=== PATIENT | female | born 1995 | race American Indian/Alaskan Native ===

== ENCOUNTER 2017-07-31 06:27 | Emergency (ER) | payer SELFPAY ==
[2017-07-31 07:03] VITALS: BP 121/76
[2017-07-31] MEDS ORDERED: MOTRIN PO ONE (10:07)
[2017-07-31] MEDS ORDERED: MARCAINE 0.25% INFILTRATI ONE (10:07)
[2017-07-31] MEDS ORDERED: NORCO 5/325 PO ONE (10:07)
--- NOTE | 2017-07-31 10:07 | Emergency Department Report ---
Abscess Boil HPI - HPI Chief Complaint: Skin/Abscess/Foreign Body Stated Complaint: ABCESS ON VAGINA Time Seen by Provider: 07/31/17 09:42 Duration: 3 Days Location: Perianal (left vaginal area) Severity: Severe (12/01) History: Yes Pain (left vaginal area), Yes Purulent Drainage (drainage, pus), No Fever (chills), No Numbness, No Foreign Body, No Previous History, No Insect Bite HPI: Patient reports that she has a boil to her left vaginal area 3 days. Pain is none of the 10 and throbbing. Denies having similar episode. Last menstrual period was 07/22/2017. Pain is worse with movement and touch better with resting. She says she has chills but did not take her temperature decisions a fever. Patient has no medical problems. No medication taken. She says she uses pad because it was draining pus. Tetanus vaccines up-to-date. 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 Home Medications: Previous Rx's Medication Instructions Recorded Last Taken Type Acetaminophen/Codeine [Tylenol 1 tab PO Q6H PRN #12 tab 07/31/17 Unknown Rx /Codeine # 3 tab] Ibuprofen [Motrin] 600 mg PO Q8H PRN #12 tablet 07/31/17 Unknown Rx Sulfamethoxazole/Trimethoprim 1 each PO BID 10 Days #20 tablet 07/31/17 Unknown Rx [Bactrim DS TAB] Allergies/Adverse Reactions: Allergies Allergy/AdvReac Type Severity Reaction Status Date / Time No Known Allergies Allergy Unverified 07/31/17 06:56 ED Review of Systems ROS: Stated complaint: ABCESS ON VAGINA Other details as noted in HPI Comment: All other systems reviewed and negative Constitutional: chills. denies: fever Respiratory: denies: cough, shortness of breath, wheezing Cardiovascular: denies: chest pain, palpitations Gastrointestinal: denies: abdominal pain, nausea, vomiting, diarrhea, constipation, hematemesis, melena, hematochezia Genitourinary: discharge (sternal vaginal area), other (boil to left vaginal area). denies: urgency, dysuria, frequency, hematuria, abnormal menses Musculoskeletal: denies: back pain, joint swelling, arthralgia Skin: other (wall to left vaginal area with drainage). denies: rash, lesions, pruritus ED Past Medical Hx - Past Medical History Previous Medical History?: No - Surgical History Past Surgical History?: No - Family History Family history: hypertension (patient is single and lives with family) - Social History Smoking Status: Never Smoker Substance Use Type: None - Medications Home Medications: Home Medications Medication Instructions Recorded Confirmed Last Taken Type Acetaminophen/Codeine [Tylenol 1 tab PO Q6H PRN #12 tab 07/31/17 Unknown Rx /Codeine # 3 tab] Ibuprofen [Motrin] 600 mg PO Q8H PRN #12 tablet 07/31/17 Unknown Rx Sulfamethoxazole/Trimethoprim 1 each PO BID 10 Days #20 tablet 07/31/17 Unknown Rx [Bactrim DS TAB] ED Abscess Boil Physical Exam - Exam General: Vital signs noted. No distress. Alert and acting appropriately. This is a 22-year-old female well-nourished well-developed in no acute distress Front/Back of Body, Lg (Color): 1 - Patient with abscess that is open and draining pus to left labia majora. Tender to palpate. Indurated with area of fluctuance to Center. Area is draining yellow pus. Small opening noted to Center of fluctuant area tetanus vaccines up-to-date Size: 2 cm Exam: Yes Tenderness (left labia majora), Yes Fluctuance (1 cm fluctuance), Yes Surrounding Cellulites/Erythema (2 cm), Yes Normal Neurologic Exam, Yes Normal Circulation, No Lymphangitis, No Crepitation, No Heart Murmur Exam: : Bilateral groin without any lympadenopathy. Lungs: Clear to auscultation bilaterally, no rhonchi was aroused. CV: S1, S2. Regular rate rhythm, no murmur. Extremity: No clubbing, cyanosis or edema. Positive pulses all extremities I & D Note - I & D Note I & D Note: Incision and drainage procedure: Under sterile procedure, vaginal area cleansed with iodine and followed by normal saline. 0.25% 2 mL bupivacaine instilled to abscess site. Less than 0.25 cm incision placed the side and moderate amount of pus expressed some side. Area cleansed with saline and patient did not want catheter or packing site because she said it still painful. I offered to place a more local anesthetic and she refused. She said it felt better after abscess drained. ED Course Vital Signs 07/31/17 06:56 Temperature 99.3 F Pulse Rate 74 Respiratory 18 Rate Blood Pressure 121/76 O2 Sat by Pulse 100 Oximetry - Reevaluation(s) Reevaluation #1: 07/31/17 11:33 Given Boswell 5/85 2 tablets and Motrin 800 mg by mouth in emergency room prior to procedure. She was also given Rocephin 1 g IM for abscess and cellulitis vaginal area Critical care attestation.: If time is entered above; I have spent that time in minutes in the direct care of this critically ill patient, excluding procedure time. ED Medical Decision Making - Medical Decision Making ED course: Patient here reports that she has drainage from her vaginal area 3 days. Patient found to have abscess cellulitis to left labia majora. Procedure for incision and drainage done under sterile procedure and moderate amount of pus was expressed from site. Patient refused packing or port catheter because she said it is still painful. I offered to numb area more and she refused. I discussed with her that she needs to do sitz baths once daily and also warm pack compresses twice daily. She was understanding. Patient was given pain medication and antibiotic and emergency room. And she is to follow- up with [facility] and 4 days for reevaluation and if not she can return to emergency room. She will be discharged home and antibiotic and pain medication. Diagnostic/labs: None performed. ED medication: Rocephin 1 g IM, Motrin 800 mg by mouth and Boswell 5/325 2 tablets by mouth. Procedure: Simple abscess incision and drainage. See notes for detail. Diagnosis: Simple Abscess and cellulitis to labia majora Encounter for incision and drainage to abscess, labia majora Pain, labia majora Prescription: Bactrim DS, Motrin and Tylenol No. 3 Education: Information on acute wound care given. Patient instructed to keep affected ear clean and dry and to do sitz baths once daily and apply warm compresses twice daily to affected ear. I instructed her if area becomes more painful, if she developed fever and increase in swelling, to return to the emergency room [facility]AGAN . Follow-up: [facility] in 4 days and if she cannot get and felt [facility] to return to the emergency room in 4 days for reevaluation. ED Disposition Clinical Impression: Left genital labial abscess, Cellulitis of labia majora, Labial pain, Encounter for incision and drainage procedure Disposition: TO HOME OR SELFCARE Is pt being admited?: No Does the pt Need Aspirin: No Condition: Stable Instructions: Abscess (ED), Cellulitis (ED), Acute Wound Care (ED) Additional Instructions: Please keep affected ear clean and dry See referral to some outside Medical Center, please call today to schedule an appointment for follow-up visit on Friday for reevaluation and if he cannot get in with thoughts of [facility] he can return to the emergency room. Take antibiotics as prescribed He is to not drive or operate heavy machinery while taking Tylenol No. 3 as this medication causes drowsiness. Prescriptions: Acetaminophen/Codeine [Tylenol /Codeine # 3 tab] 1 tab PO Q6H PRN #12 tab PRN Reason: severe pain Ibuprofen [Motrin] 600 mg PO Q8H PRN #12 tablet PRN Reason: Pain Sulfamethoxazole/Trimethoprim [Bactrim DS TAB] 1 each PO BID 10 Days #20 tablet Referrals: PRIMARY CAREMD [Primary Care Provider] - 08/04/17 [facility] [Outside] - 08/04/17 Forms: Work/School Release Form(ED)
[2017-07-31] MEDS ORDERED: ROCEPHIN IM STA (11:34)
[2017-07-31] MEDS ORDERED: XYLOCAINE 1% MPF 5 mL INFILTRATI ONE (11:34)
== END 2017-07-31 12:02 | disposition home or self-care (01) ==
LOC: ED 06:27
DX: N76.4 Abscess of vulva (principal); N76.2 Acute vulvitis
CPT/HCPCS: 56405; 96372; 99282; J0696